=== PATIENT | male | born 1970 | race Caucasian/White ===

== ENCOUNTER 2017-08-08 11:32 | Outpatient (CLI) | payer OTHER | END 2017-08-08 11:33 | disposition home or self-care (01) | LOC: BICRAD 11:32 | PROVIDERS: ATTEND Family Medicine | DX: M54.5 Low back pain (principal); M47.896 Other spondylosis, lumbar region | CPT/HCPCS: 72100 ==

== ENCOUNTER 2017-08-16 11:01 | Emergency (ER) | payer OTHER ==
[2017-08-16 11:57] LABS: #Lymphocytes 0.9 thou/uL (1.20-3.40); #Monocytes 0.5 thou/uL (0.11-0.59); #Neutrophils 2.7 thou/uL (1.40-6.50); %Basophils 0.6 % (0.0-1.0); %Eosinophils 1.1 % (0.0-10.0); %Lymphocytes 21.8 % (21.0-51.0); %Neutrophils 64.6 % (42.0-75.0); Hemoglobin 12.7 g/dL (14.0-18.0); Mean Corpuscular HGB CONC 33.2 g/dL (32.0-36.0); Mean Corpuscular Hemoglobin 34.5 pg (27.0-31.0); Mean Platelet Volume 7.3 fL (7.4-10.4); Platelet Count 45 thou/uL (130-400); RBC Distribution Width 11.8 % (11.5-14.5); Red Blood Cell (RBC) Count 3.68 mill/uL (4.70-6.10); White Blood Cell (WBC) Count 4.1 thou/uL (4.8-10.8)
[2017-08-16 12:02] LABS: ALT (SGPT) 45 U/L (8-55); AST (SGOT) 123 U/L (5-34); Albumin 3.9 g/dL (3.5-5.0); Alkaline Phosphatase 75 U/L (40-150); Anion Gap 15 mmol/L (10-20); BUN (Urea Nitrogen) 6 mg/dL (8.9-20.6); Bilirubin, Total 1.5 mg/dL (0.2-1.2); Calc. Creatinine Clearance 0 mL/min (70-130); Calcium 8.6 mg/dL (7.8-10.44); Carbon Dioxide 23 mmol/L (22-29); Chloride 97 mmol/L (98-107); Estimated GFR-MDRD Greater than 90; Globulin 3.7 g/dL (2.4-3.5); Glucose 125 mg/dL (70-105); Potassium 3.9 mmol/L (3.5-5.1); Protein, Total 7.6 g/dL (6.0-8.3); Sodium 131 mmol/L (136-145)
[2017-08-16 12:06] LABS: Troponin I Less than 0.010 ng/mL (< 0.028)
--- NOTE | 2017-08-16 12:25 | CT ---
CT BRAIN WITHOUT CONTRAST: Comparison: 03-16-16 History: Head trauma. Cirrhosis. History of alcohol abuse. Lower extremity pain and weakness for 8 ye ars. Technique: Multiple contiguous axial images were obtained in a CT of the brain without contrast. FINDINGS: The brain is normal in morphology and attenuation without focal lesions or confluent areas of infarct ion. There is no evidence of hydrocephalus, intracranial hemorrhage, or extraaxial fluid collection. The calvarium and overlying soft tissues are unremarkable. The visualized paranasal sinuses and masto id air cells are well aerated. IMPRESSION: No evidence of acute intracranial abnormality. POS: [facility]
[2017-08-16] MEDS ORDERED: Multivitamins, Adult 10 ML, Thiamine HCl 100 MG, Folic Acid 1 MG in Dextrose 5 %-0.45 %... IV ONE (12:30)
--- NOTE | 2017-08-16 13:07 | RAD ---
3 VIEWS LUMBOSACRAL SPINE: Date: 08/16/17 COMPARISON: None. HISTORY: Low back pain after trauma. FINDINGS: Three views of the lumbosacral spine show normal height and alignment of the vertebral bodies and int ervertebral discs without fracture or subluxation. Small osteophytes are seen in the lower lumbosacra l spine. IMPRESSION: Mild degenerative changes of the lumbar spine without acute osseous abnormality. POS: [facility]
--- NOTE | 2017-08-16 13:08 | RAD ---
SINGLE VIEW OF THE PELVIS: Comparison: None. History: Pelvic trauma with pain. FINDINGS: Single view of the pelvis shows no evidence of acute fracture or dislocation. No degenerative changes are seen. No soft tissue swelling is present. IMPRESSION: Unremarkable exam. POS: [facility]
--- NOTE | 2017-08-16 13:16 | RAD ---
RIGHT SHOULDER THREE VIEWS: HISTORY: Bilateral lower extremity pain and weakness for eight years. Trauma and pain in the right shoulder. COMPARISON: None. FINDINGS: Three views of the right shoulder show no evidence of acute fracture or dislocation. There appears t o be a large Hill-Sachs deformity in the humerus. Surrounding callus is seen, suggesting healing of this deformity. No significant degenerative change is seen in the glenohumeral or acromioclavicular joint. IMPRESSION: 1. No evidence of acute osseous abnormality. 2. The patient appears to have Hill-Sachs deformity in the proximal humerus, likely from prior shoul jo ann dislocation. POS: [facility]
--- NOTE | 2017-08-18 14:25 | EKG ---
Test Reason : Blood Pressure : / mmHG Vent. Rate : 073 BPM Atrial Rate : 073 BPM P-R Int : 158 ms QRS Dur : 112 ms QT Int : 396 ms P-R-T Axes : 048 006 025 degrees QTc Int : 436 ms Normal sinus rhythm Normal ECG Confirmed by ZULAY MELTON ([id number]), food editor INGRID WHITESIDE ([id number]) on 08/18/2017 2:24:42 PM Referred By: Confirmed By:ZULAY MELTON
== END 2017-08-16 13:21 | disposition left against medical advice (07) ==
LOC: ERS 11:01
DX: R53.1 Weakness (principal); S42.201D Unspecified fracture of upper end of right humerus, subsequent encounter for fracture with routine healing; F10.10 Alcohol abuse, uncomplicated; I10 Essential (primary) hypertension; F32.9 Major depressive disorder, single episode, unspecified; F17.220 Nicotine dependence, chewing tobacco, uncomplicated; W19.XXXA Unspecified fall, initial encounter
CPT/HCPCS: 36415; 70450; 72100; 72170; 80053; 82140; 82553; 83735; 84484; 85025; 93005; J3411; J7042

== ENCOUNTER 2018-03-21 09:42 | Outpatient (CLI) | payer OTHER ==
--- NOTE | 2018-03-21 12:54 | ULT ---
GALLBLADDER ULTRASOUND: History: Alcohol abuse. Comparison: None. Technique: Utilizing a multihertz transducer, sonographic imaging of the right upper quadrant is perf ormed in the longitudinal and transverse plane. FINDINGS: Visualized IVC and aorta are unremarkable. Hepatic parenchyma has an increased echogenicity which may be due to hepatic steatosis or hepatocellu lar disease. ====== vascular hepatic masses and intrahepatic biliary dilatation is limited. Right hep atic lobe measures 16.5 cm. Main portal vein is patent. Appropriate direction of flow. Limited evaluation of the common bile duct. Right kidney has a normal cortical echotexture measuring 11.5 x 2.2 x 6.2 cm. No hydronephrosis. No s onographic evidence of cholelithiasis, gallbladder wall thickening, or pericholecystic fluid. No comm ent on the presence or absence of Oliver sign. The head the pancreas has a normal echotexture. Remainder of the pancreas is obscured by bowel gas. IMPRESSION: Increased echogenicity of the liver which may be due to hepatic steatosis or hepatocellular disease. If there is concern for hepatic mass, consider liver mass protocol CT. POS: [facility]
== END 2018-03-21 09:43 | disposition home or self-care (01) ==
LOC: ULT 09:42
PROVIDERS: ATTEND Family Medicine
DX: F10.10 Alcohol abuse, uncomplicated (principal); R93.2 Abnormal findings on diagnostic imaging of liver and biliary tract
CPT/HCPCS: 76705

== ENCOUNTER 2018-04-05 10:26 | Outpatient (CLI) | payer OTHER ==
--- NOTE | 2018-04-05 13:35 | MRI ---
MRI LUMBAR SPINE NONCONTRAST: DATE: 04-05-18 HISTORY: 47-year-old male with M47.816 lumbar spondylosis and chronic low back pain. COMPARISON: None. FINDINGS: For the purposes of this report, the first non-rib bearing vertebra will be designated as L1. There i s a partially formed S1-S2 disc space, and S1 is mildly partially lumbarized. The last fully formed d isc space will be designated as L5-S1. There is moderate disc space narrowing at T11-12. All of the rest of the disc spaces are maintained. Alignment is normal. Vertebral body heights are maintained. Bone marrow signal is normal. T12-L1: Normal. L1-2: Normal. Conus medullaris terminates at this level. L2-3: Normal. L3-4: Minimal disc bulge. Otherwise normal. L4-5: Mild bilateral degenerative facet changes. No central stenosis. Just lateral to the right neura l foramen, there is a small focal far lateral disc herniation which indents and mildly posterolateral ly displaces the exiting right L4 nerve root. Moderate right neural foraminal stenosis. Mild left sara ral foraminal stenosis. No central stenosis. Mild bilateral degenerative facet changes. L5-S1: No central stenosis or right neural foraminal stenosis. No high grade facet DJD. Moderate left neural foraminal stenosis, causing mild posterolateral deflection of the exiting left L5 nerve root. IMPRESSION: 1. Lumbar spondylosis is minimal. 2. No central stenosis at any level. 3. Impingement on the extraforaminal portion of the right exiting L4 nerve root lateral to the L4-5 n eural foramen, by a far lateral small focal disc herniation. 4. Questionable mild impingement of the left L5 nerve root in the left L5-S1 neural foramen. [place] POS: [facility]
== END 2018-04-05 10:27 | disposition home or self-care (01) ==
LOC: SCSMRI 10:26
PROVIDERS: ATTEND Nurse Practitioner Family
DX: M47.816 Spondylosis without myelopathy or radiculopathy, lumbar region (principal); M25.80 Other specified joint disorders, unspecified joint; M51.26 Other intervertebral disc displacement, lumbar region
CPT/HCPCS: 72148